=== PATIENT | male | born 1995 | race Caucasian/White ===

== ENCOUNTER 2021-12-09 08:00 | Outpatient (CLI) | payer OTHER ==
--- NOTE | 2021-12-09 14:47 | XRAY Report ---
PROCEDURE: Chest 2 View X-Ray INDICATIONS: ACUTE COUGH TECHNIQUE: 2 view(s) of the chest. COMPARISON: None. FINDINGS: Surgical changes and devices: None. Lungs and pleura: No pleural effusions or pneumothorax. Lungs are clear. Mediastinum: Mediastinal contours are normal. Heart size is normal. Bones and chest wall: No suspicious bony abnormalities. Soft tissues appear unremarkable. IMPRESSION: No acute cardiopulmonary pathology. Reviewed by: Shankar Boucher MD on 12/09/2021 2:45 PM PDT Approved by: Shankar Boucher MD on 12/09/2021 2:45 PM PDT Station ID: [id number]
== END 2021-12-09 23:59 | disposition home or self-care (01) ==
LOC: DI.N 08:00
PROVIDERS: ATTEND Physician Assistant
DX: R05.1 Acute cough (principal); Z20.822 Contact with and (suspected) exposure to COVID-19

== ENCOUNTER 2022-05-22 07:32 | Emergency (ER) | payer OTHER ==
[2022-05-22 07:44] VITALS: BP 130/89
--- NOTE | 2022-05-22 07:45 | ED Physician Documentation ---
PD HPI URI - Stated complaint Stated Complaint: COUGH/SOA - Chief complaint Chief Complaint: Resp - History obtained from History obtained from: Patient - History of Present Illness Timing - onset: How many weeks ago (over 2 weeks) Timing duration: Weeks (over 2) Associated symptoms: Fever, Dry cough (initially), Productive cough (the past several days) Contributing factors: Sick contact (her children had RSV and patient got same symptoms. They had improved but patient extended illness and now with productive cough.). No: COPD / asthma Improves by: No: Medication Worsened by: Activity Similar symptoms before: Has not had sx before Recently seen: Not recently seen Review of Systems Constitutional: reports: Fever Nose: reports: Congestion, Sinus pressure / pain Throat: denies: Sore throat Respiratory: reports: Dyspnea, Cough GI: denies: Nausea, Vomiting, Diarrhea Skin: denies: Rash Neurologic: reports: Headache. denies: Generalized weakness, Near syncope, Head injury PD PAST MEDICAL HISTORY - Past Medical History Cardiovascular: None Respiratory: None Endocrine/Autoimmune: None - Present Medications Home Medications: Ambulatory Orders Medication Instructions Recorded Confirmed Albuterol Sulf [Ventolin Hfa 1 - 2 puffs INH Q4HR PRN 05/22/22 05/22/22 Inhaler] Albuterol Sulf [Ventolin Hfa 2 - 3 puffs INH QID 14 Days #1 each 05/22/22 Inhaler] Amox/Clav 875/125 [Augmentin] 1 each PO BID #10 tablet 05/22/22 Benzonatate [Tessalon] 100 mg PO TID PRN #20 cap 05/22/22 dexAMETHasone [Decadron] 4 mg PO DAILY #5 tablet 05/22/22 - Allergies Allergies/Adverse Reactions: Allergies Allergy/AdvReac Type Severity Reaction Status Date / Time Lidocaine Patch Allergy Unknown Uncoded 05/22/22 07:44 - Social History Does the pt smoke?: No Does the pt have substance abuse?: No PD ED PE NORMAL - Vitals Vital signs reviewed: Yes - General General: Alert and oriented X 3, No acute distress, Well developed/nourished - HEENT HEENT: Ears normal, Pharynx benign - Neck Neck: Supple, no meningeal sign, No adenopathy - Cardiac Cardiac: RRR, No murmur - Respiratory Respiratory: Clear bilaterally - Abdomen Abdomen: Soft, Non tender - Derm Derm: Normal color, Warm and dry - Neuro Neuro: Alert and oriented X 3, No motor deficit, Normal speech Results - Vitals Vitals: Oxygen O2 Source Room air PD MEDICAL DECISION MAKING - ED course Complexity details: considered differential (URI with now productive cough and prolonged illness beyond typical viral pattern. ), d/w patient Departure - Departure Disposition: 01 Home, Self Care Clinical Impression: Acute bronchitis, Recent URI Condition: Stable Record reviewed to determine appropriate education?: Yes Follow-Up: JOSEMANUEL Marsh [Provider Group] Prescriptions: Amox/Clav 875/125 [Augmentin] 1 each PO BID #10 tablet dexAMETHasone [Decadron] 4 mg PO DAILY #5 tablet Benzonatate [Tessalon] 100 mg PO TID PRN #20 cap PRN Reason: Cough Albuterol Sulf [Ventolin Hfa Inhaler] 2 - 3 puffs INH QID 14 Days #1 each Comments: It does sound likely that you now have a secondary bacterial infection in the sinus/bronchioles on top of the recent RSV viral infection. The duration of yo ur symptoms and character of it now would suggest that. Will treat it with Augmentin antibiotic twice daily for 5 days. Also to help with your breathing and cough, a combination of an inhaler albuterol 2 to 3 puffs 4 times daily for the next several days to week, benzonatate for cough, and Decadron steroid to help with bronchial inflammation. These combination of medicine should help with your symptoms and breathing. You should notice good improvement over the next 2 to 3 days and resolution over 3 to 5 days. Off work today to rest and stay well-hydrated. I transmitted your prescriptions to [facility] pharmacy in [place]. Forms: Activity restrictions Discharge Date/Time: 05/22/22 09:37
[2022-05-22] MEDS ORDERED: DEXAMETHASONE 10 MG/ML VIAL PO STA (08:21)
[2022-05-22] MEDS ORDERED: BENZONATATE 100 MG CAPSULE PO STA (08:21)
[2022-05-22] MEDS ORDERED: CHERRY SYRUP 10 ML UDC PO ONE (08:21)
[2022-05-22] MEDS ORDERED: ALBUTEROL NEB 2.5 MG/3 ML INH STA (08:21)
[2022-05-22] MEDS ORDERED: AMOX/CLAV 875 MG/125 MG TABLET PO STA (08:22)
--- NOTE | 2022-05-22 08:37 | XRAY Report ---
PROCEDURE: Chest 1 View X-Ray INDICATIONS: Cough/SOA TECHNIQUE: One view of the chest was acquired. COMPARISON: None FINDINGS: Surgical changes and devices: None. Lungs and pleura: No pleural effusions or pneumothorax. Lungs are clear. Mediastinum: Mediastinal contours appear normal. Heart size is normal. Bones and chest wall: No suspicious bony lesions. Overlying soft tissues appear unremarkable. IMPRESSION: No acute cardiopulmonary process demonstrated radiographically. Reviewed by: David Barrett MD on 05/22/2022 8:36 AM PDT Approved by: David Barrett MD on 05/22/2022 8:36 AM PDT Station ID: [id number]
== END 2022-05-22 09:37 | disposition home or self-care (01) ==
LOC: ED 07:32
DX: J06.9 Acute upper respiratory infection, unspecified (principal); B97.4 Respiratory syncytial virus as the cause of diseases classified elsewhere; J20.9 Acute bronchitis, unspecified
CPT/HCPCS: 71045; 94640; 99283; 99284; A9270

== ENCOUNTER 2023-12-20 10:04 | Outpatient (CLI) | payer OTHER ==
--- NOTE | 2023-12-20 10:41 | Sleep Patient Instructions ---
Sleep Center Visit Summary - Patient Visit Information Reason for Visit: Initial consult for evaluation of sleep disordered breathing and other sleep issues. - Patient Instructions Instructions Attached: Sleep Study Additional Instructions: You will be completing a sleep study, either an in-lab polysomnography (PSG) or home sleep study (HST). You will follow-up in the sleep care office after the sleep study is completed to hear the results and talk about therapy, if needed. You will be called by our office staff to schedule this appointment, but you may contact us with any questions. - Clinic Information Contact: [facility] [address] [place] [address] [email or web address] T: [phone]
--- NOTE | 2023-12-20 10:43 | SLEEP CARE CONSULTATION ---
Information from patient questionnaire entered by Alisa Ortiz. I have reviewed and concur with the information entered by Alisa Ortiz. This document represents the service I personally performed and the decisions made by me, No Paulson ARNP. History of Present Illness Service Date and Time: 12/20/2023 1004 Reason for Visit: New patient Chief Complaint: reports: Unrefreshed sleep, Snoring, Observed pauses in breathing, Fatigue, Frequent awakenings at night Date of Onset: 5+YRS Usual bedtime: 3795-2199 Time it takes to fall asleep: 3-20MINS Snores at night: Yes Observed to quit breathing while asleep: Yes Sleeps alone due to snoring: No Number of times waking at night: 3-6 Reasons for waking at night: reports: Choking (occasional with a quick awakening, hard to go back to sleep), Snoring, Other (UNKNOWN). denies: Gasping for air Toss, Turn, or Twitch while sleeping: Yes Recalls having dreams: No Usually gets out of bed at: 0600 Feels refreshed in the morning: No Morning headache: Yes (4 times a week, last about an hour ) Sleepy or fatigued during the day: Yes Ever fallen asleep while driving: No Takes day naps: Yes (when he can; 2-3 times a week; 20 mins to 1 hour) Dreams during day naps: Yes Prior sleep studies: No Additional HPI information: I had the pleasure of seeing CORNELIUS SANTANA today regarding the possibility of him having a sleep disorder. His current complaints are fatigue, frequent night awakenings, observed pauses in breathing, snoring and unrefreshed sleep. He says he is always waking up tired. He will wake up with a sore throat. He knows he snores and has woken himself sometimes with snoring. His has told him that he stopped breathing in his sleep. - Parasomnia Symptoms Ever been unable to move upon waking from sleep: No Walks in sleep: Yes (only when younger) Talks in sleep: Yes Ever acted out dreams in sleep: Yes ( has seen him flail his arms occasionally) Ever felt weak in the knees when startled or emotional: No Bothered by creepy, crawly, restless sensations in legs: No Problems with memory or concentration: No Subjective Initial [place] Sleepiness Scale score: 11 (12/20/23) Past Medical History Past Medical History: reports: Other (having elevated blood pressure being evaluated) Social History The patient's occupation is a [employer]. Patient is and lives in . Have you smoked in the past 12 months: No Alcohol use: Yes Alcohol amount and frequency: 2-6 WEEKLY Caffeine use: Yes Caffeine amount and frequency: 1 cup coffee, DAILY Family History Family history of sleep disordered breathing: Yes Family Hx Sleep Apnea: Father: Snoring, Sleep apnea - Untreated, Sibling: Snoring, Sleep apnea - Untreated, Grandparent: Snoring, Sleep apnea - Untreated Allergies and Home Medications Known drug allergies: Yes (as listed) Drug allergies reviewed: Yes Home medication list reviewed: Yes (as listed) Allergy and home medication list: Allergies Lidocaine Patch Allergy (Uncoded 12/17/23 12:57) Unknown Home Medications Medication Instructions Recorded Confirmed Last Taken Type Cyclobenzaprine [Flexeril] See Rx Instructions .ROUTE .COMPLEX 12/20/23 12/20/23 Unknown History Review of Systems Weight gain over past 5 years: 50 Cardiovascular: reports: high blood pressure, irregular heart rate or pulse Respiratory: reports: shortness of breath, chronic cough Gastrointestinal: denies: heartburn Neurological: reports: headaches. denies: head trauma Psychiatric: denies: anxiety, depression Ear/Nose/Throat: reports: nasal congestion, sinus problems, dry mouth/throat, hoarseness, injury to nose (broke nose). denies: tonsillectomy Endocrine: reports: too hot or cold, excessive thirst Musculoskeletal: reports: neck pain, back pain Physical Exam Vital signs obtained and entered by: ALISA Toney MA Blood Pressure: 141/92 (LEFT ARM) Cuff size: long Heart Rate: 103 O2 Saturation: 98 Height: 5 ft 11 in Weight: 206 lb 3.2 oz Body Mass Index: 28.8 BMI Classification: Overweight Neck circumference: 15.5 Nostrils: patent to airflow Mouth and throat: narrow oropharynx Soft palate: long Hard palate: normal Uvula: normal Uvula visualization: 25% Mallampati Class III Tongue: enlarged in size with teeth barlow on lateral edges Tonsils: 1+ Neck: normal w/o lymphadenopathy or thyromegaly Heart: regular rate and rhythm Lungs: clear bilaterally Impression and Plan 1. Suspected Obstructive Sleep Apnea-Hypopnea Syndrome, as suggested by a history of loud and irregular snoring, observed cessation of breath while asleep, gasping or choking in sleep, morning headache, frequent awakening during the night, unrefreshed sleep, and excessive daytime sleepiness. Narrow oropharynx and obesity are common predisposing factors for obstructive sleep apnea-hypopnea syndrome. I recommend proceeding to polysomnography to confirm the diagnosis and to assess severity. If the patient has significant sleep disordered breathing, a manual CPAP titration study will also be performed to find the optimal treatment pressure. I informed the patient of what the sleep studies involve and after some discussion, obtained agreement to proceed. The pathophysiology of obstructive sleep apnea-hypopnea syndrome was discussed with the patient and health risks of cardiovascular and cerebrovascular disease if not treated. Risks of drowsy driving discussed in detail and patient advised to avoid long distance driving and to machine puller at the first sign of drowsiness. Patient agreed to plan. * Schedule polysomnography. * Avoid long distance driving or driving when feeling sleepy. * Avoid alcohol, sedative and muscle relaxant around bedtime. * Attempt to lose weight. * Review instructions provided by trained office staff on how to prepare for the sleep study. * Return for follow-up after sleep study completed. Counseling Topics: Weight loss health impact Plan: PSG and follow up Visit Type: In Office Time Spent with Patient (minutes): 30 Provider Statement: I spent 100% of the Face to Face Visit with the patient with greater than 50% spent counseling the patient and coordination of care.
[2023-12-20 10:51] VITALS: BP 141/92; O2SAT 98
== END 2023-12-20 10:05 | disposition home or self-care (01) ==
LOC: SC 10:04
PROVIDERS: ATTEND Nurse Practitioner Family
DX: R06.83 Snoring (principal); R06.81 Apnea, not elsewhere classified; G47.8 Other sleep disorders; R51.9 Headache, unspecified; G47.10 Hypersomnia, unspecified; E66.3 Overweight; Z68.28 Body mass index [BMI] 28.0-28.9, adult
CPT/HCPCS: 99203; 99212

== ENCOUNTER 2024-03-25 20:09 | Outpatient (CLI) | payer OTHER | END 2024-03-25 20:10 | disposition home or self-care (01) | LOC: SC 20:09 | PROVIDERS: ATTEND Nurse Practitioner Family | DX: G47.8 Other sleep disorders (principal) | CPT/HCPCS: 95810 ==